=== PATIENT | female | born 2005 | race Caucasian/White ===

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

== ENCOUNTER 2024-01-09 23:25 | Emergency (ER) | payer SELFPAY ==
[2024-01-10 00:32] LABS: BASOPHILS ABSOLUTE AUTO 0.04 K/uL (0.02-0.10); BASOPHILS PERCENT AUTO 0.4 % (0.0-0.5); EOSINOPHILS PERCENT AUTO 2.2 % (1.0-5.0); HEMATOCRIT 34.2 % (37.0-47.0); HEMOGLOBIN 11.4 g/dL (11.5-16.5); LYMPHOCYTES ABSOLUTE AUTO 2.53 K/uL (1.50-4.00); LYMPHOCYTES PERCENT AUTO 27.8 % (20.0-40.0); MEAN CORPUSCULAR HGB CONC 33.3 g/dL (31.0-35.0); MEAN CORPUSCULAR VOLUME 93 fL (76-96); MONOCYTES PERCENT AUTO 6.6 % (3.0-10.0); NEUTROPHILS ABSOLUTE AUTO 5.73 K/uL (2.00-7.50); PLATELET COUNT,PLT 218 K/uL (150-500); RED BLOOD CELL COUNT 3.68 M/uL (3.80-5.80); RED CELL DISTRIBUTION WIDTH 12.6 % (11.0-16.0); WHITE BLOOD CELL COUNT,WBC 9.1 K/uL (4.0-11.0)
[2024-01-10 00:52] LABS: PROTHROMBIN TIME 10.8 sec (9.0-11.5)
== END 2024-01-10 00:58 | disposition home or self-care (01) ==
LOC: LB.ED 23:25
DX: N92.0 Excessive and frequent menstruation with regular cycle (principal); Z90.49 Acquired absence of other specified parts of digestive tract
CPT/HCPCS: 36415; 85025; 85610; 99284

== ENCOUNTER 2024-06-21 23:15 | Emergency (ER) | payer SELFPAY ==
[2024-06-21] MEDS ORDERED: Azithromycin 250 MG Tab ONE (23:45)
[2024-06-22 00:33] LABS: INFLUENZA A NAA NEGATIVE (NEGATIVE); INFLUENZA B NAA NEGATIVE (NEGATIVE); RESPIRATORY SYNCYTIAL VIR NAA NEGATIVE (NEGATIVE)
[2024-06-22 00:34] LABS: CORONAVIRUS COVID-19 NAA NEGATIVE (NEGATIVE)
== END 2024-06-22 00:48 | disposition home or self-care (01) ==
LOC: LB.ED 23:15
DX: J06.9 Acute upper respiratory infection, unspecified (principal)
CPT/HCPCS: 0241U; 99283; 99284; A9270-GY

== ENCOUNTER 2024-10-15 05:59 | Emergency (ER) | payer OTHER ==
[2024-10-15 07:02] LABS: MEAN PLATELET VOLUME 10.3 fL (6.0-10.0); PLATELET COUNT,PLT 236 K/uL (150-500); RED BLOOD CELL COUNT 3.91 M/uL (3.80-5.80); RED CELL DISTRIBUTION WIDTH 14.2 % (11.0-16.0)
[2024-10-15 07:04] LABS: WHITE BLOOD CELL COUNT,WBC 26.0 K/uL (4.0-11.0)
[2024-10-15 09:13] LABS: LYMPHOCYTES PERCENT MAN 10.0 % (20.0-40.0); PLATELET COUNT ESTIMATE ADEQUATE; SEG NEUTROPHILS PERCENT MAN 90.0 % (45.0-70.0)
== END 2024-10-15 07:27 | disposition home or self-care (01) ==
LOC: LB.ED 05:59
DX: J03.80 Acute tonsillitis due to other specified organisms (principal); B96.89 Other specified bacterial agents as the cause of diseases classified elsewhere; Z79.899 Other long term (current) drug therapy
CPT/HCPCS: 36415; 85025; 87651; 99284; A9270

== ENCOUNTER 2025-01-31 09:18 | Emergency (ER) | payer OTHER ==
[2025-01-31 09:39] LABS: APPEARANCE,URINE TURBID (CLEAR); GLUCOSE,URINE NEGATIVE (NEGATIVE); OCCULT BLOOD,URINE TRACE-INTACT (NEGATIVE)
[2025-01-31 09:46] LABS: SQUAMOUS EPITHELIAL CELLS,UR FEW /HPF; WBC CLUMPS,URINE FEW /HPF
== END 2025-01-31 10:02 | disposition home or self-care (01) ==
LOC: LB.ED 09:18
DX: N30.01 Acute cystitis with hematuria (principal); Z90.49 Acquired absence of other specified parts of digestive tract
CPT/HCPCS: 81001; 87086; 99283; A9270-GY